=== PATIENT | male | born 1985 | race Two or more races ===

== ENCOUNTER 2019-12-08 09:58 | Emergency (ER) | payer SELFPAY ==
[2019-12-08 10:53] VITALS: BP 113/60
[2019-12-08] MEDS ORDERED: AZITHROMYCIN 250 MG TABLET PO ONE (11:02)
[2019-12-08] MEDS ORDERED: LIDOCAINE 1% INJ-PF (10 MG/ML) 30 ML SDV INJ ONE (11:02)
[2019-12-08] MEDS ORDERED: CEFTRIAXONE INJ 250 MG VIAL IM ONE (11:02)
--- NOTE | 2019-12-08 11:06 | ER Document Report ---
HPI - HPI Time Seen by Provider: 12/08/19 11:00 Notes: Patient is a 34-year-old male no significant past medical history who presents complaining of possible exposure to chlamydia and gonorrhea. Patient states that he is otherwise feeling well. He is able to eat and drink without difficulty. He is urinating normally and having normal bowel movements. He has not noticed any drainage, pain, or swelling. He has no other concerns or complaints. Denies any headache, fever, neck pain, URI, sore throat, chest pain, palpitations, syncope, cough, shortness of breath, wheeze, dyspnea, abdominal pain, nausea/vomiting/diarrhea, urinary retention, dysuria, hematuria, or rash. - ROS Systems Reviewed and Negative: Yes All other systems reviewed and negative Past Medical History - Social History Smoking Status: Never Smoker Family History: Reviewed & Not Pertinent Vertical Provider Document - CONSTITUTIONAL Agree With Documented VS: Yes Notes: PHYSICAL EXAMINATION: GENERAL: Well-appearing, well-nourished and in no acute distress. EYES: Pupils equal round and reactive to light, extraocular movements intact, sclera anicteric, conjunctiva are normal. ENT: Nares patent and without discharge. oropharynx clear without exudates. No tonsilar hypertrophy or erythema. Moist mucous membranes. NECK: Normal range of motion, supple without lymphadenopathy LUNGS: Breath sounds clear to auscultation bilaterally and equal. No wheezes rales or rhonchi. HEART: Regular rate and rhythm without murmurs, rubs, gallops. ABDOMEN: Soft, nontender, nondistended abdomen. No guarding, no rebound. Normal bowel sounds present. No CVA tenderness bilaterally. : + circumcised. There is no erythema, swelling, ecchymosis, rash, necrosis noted. There is no urethral discharge or obvious inguinal hernia. Nontender to palpation of the testicles, scrotum, epididymal sacs, and penis. No transverse testicular lie. Cremasterics intact bilaterally. Musculoskeletal: FROM to passive/active. Strength 5+/5. Extremities: No cyanosis, clubbing, or edema b/l. Peripheral pulses 2+. Capillary refill less than 3 seconds. NEUROLOGICAL: Normal speech, normal gait. PSYCH: Normal mood, normal affect. SKIN: Warm, Dry, normal turgor, no rashes or lesions noted. Course - Re-evaluation Re-evalutation: 12/08/19 11:04 Patient is an afebrile, well-hydrated, 34-year-old male who presents with possible exposure to STD. Vitals are acceptable without significant tachycardia, tachypnea, or hypoxia. PE is otherwise unremarkable. Patient's abdomen is soft and nontender. Chlamydia & gonorrhea tests are pending. Patient did receive Zithromax and Rocephin. No further work-up warranted at this time. Low suspicion/risk for acute appendicitis, bowel obstruction, acute cholecystitis, perforated diverticulitis, incarcerated hernia, pancreatitis, perforated ulcer, peritonitis, sepsis, testicular torsion, or other systemic emergent condition at this time. Patient is aware that his condition can change from initial presentation and he needs to monitor symptoms closely and seek medical attention if any acute changes. Conservative measures otherwise for symptoms. Recheck with PCM in 3-5 days. See the health department next week. Return to the ED with any worsening/concerning symptoms otherwise as reviewed in discharge. Patient is in agreement. - Vital Signs Vital signs: Temp Pulse Resp BP Pulse Ox 97.9 F 51 L 16 113/60 99 12/08/19 10:52 12/08/19 10:52 12/08/19 10:52 12/08/19 10:52 12/08/19 10:52 Discharge - Discharge Clinical Impression: Possible exposure to STD Condition: Stable Disposition: HOME, SELF-CARE Additional Instructions: Push fluids (i.e. water, cranberry juice) Proper hygenic technique Keep the skin clean Safe sexual practices with condoms everytime Tylenol/ibuprofen as needed Check in with the health department this week for further testing* Your chlamydia/Ghon test are pending and you will be notified if positive results; you may call in 1 day for the results as well Return immediately if symptoms worsen F/u with your PCM in 3-5 days for a recheck Return to the ED with any development of ROMO/fever, trouble with vision, eye redness, worsening pain, urethral discharge, urinary retention, blood in the urine, flank pain, abdominal pain, n/v, Chest Pain, shortness of breath, joint pains, trouble breathing, or any other worsening/concerning symptoms as needed otherwise. Referrals: HEALTH DEPT,[facility] [NO LOCAL MD] - Follow up in 3-5 days
[2019-12-08 13:05] LABS: CHLAM PCR DETECTED (NOT DETECT)
== END 2019-12-08 11:15 | disposition home or self-care (01) ==
LOC: ER 09:58
DX: Z20.2 Contact with and (suspected) exposure to infections with a predominantly sexual mode of transmission (principal)
CPT/HCPCS: 87491; 87591; J3490; J0696; 96372; 99283